=== PATIENT | female | born 1980 | race Two or more races ===

== ENCOUNTER → 2024-07-23 | Outpatient (CLI) | payer BC, MEDICAID, SELFPAY ==
[2024-07-23 12:16] LABS: Basophils % (Auto) 1 % (0-2.5); Eosinophils # (Auto) 0.1 Thou/mm3 (0.0-0.5); Eosinophils % (Auto) 1 % (0-10); Hematocrit 37.8 % (36.0-46.0); Hemoglobin 13.4 g/dL (12.0-16.0); Immature Granulocytes % (Auto) 0 % (0-0); Immature Granulocytes Auto 0.01 Thou/mm3 (0.00-0.00); Lymphocytes # (Auto) 1.7 Thou/mm3 (1.0-4.8); Lymphocytes % (Auto) 28 % (10-50); Mean Corpuscular HGB Conc 35.4 g/dl (31.0-37.0); Mean Corpuscular Hemoglobin 29.9 pg (25.0-35.0); Mean Corpuscular Volume 84 fL (80-100); Monocytes # (Auto) 0.4 Thou/mm3 (0.0-0.8); Monocytes % (Auto) 7 % (0-12); Neutrophils # (Auto) 3.8 Thou/mm3 (1.8-7.7); Neutrophils % (Auto) 63 % (37-80); Nucleated Red Blood Cell % 0 /100 WBC (0); Platelet Count 254 Thou/mm3 (140-440); RDW Standard Deviation 36.4 fL (36.4-46.3); Red Blood Count 4.48 Miln/mm3 (4.00-5.20)
[2024-07-23 12:34] LABS: B-Type Natriuretic Peptide 35 pg/mL (0-100)
[2024-07-23 12:36] LABS: Alanine Aminotransferase 20 U/L (10-49); Albumin, Serum 4.7 gm/dL (3.5-5.0); Alkaline Phosphatase 75 U/L (46-116); Anion Gap 8 (7-16); Aspartate Amino Transferase 21 U/L (0-34); BUN/Creatinine Ratio 20 Ratio (12-20); Bilirubin,Direct 0.3 mg/dL (0.0-0.3); Bilirubin,Total 0.9 mg/dL (0.3-1.2); Blood Urea Nitrogen 16 mg/dL (9-23); Calcium 9.8 mg/dL (8.3-10.6); Carbon Dioxide 24.3 mMol/L (20.0-31.0); Cardiac Risk Estimate 4.4 RATIO (3.7-5.6); Chloride 105 mMol/L (98-107); Cholesterol 189 mg/dL (132-200); Creatinine (Component) 0.8 mg/dL (0.6-1.3); Glucose 98 mg/dL (74-106); HDL Cholesterol 43 mg/dL (40-60); LDL Cholesterol,Calculated 115 mg/dL (0-130); Osmolality,Calculated 275 (275-295); Phosphorous 3.8 mg/dL (2.4-5.1); Sodium 137 mMol/L (136-145); Total Protein 7.4 gm/dL (5.7-8.2); Triglycerides 154 mg/dL (30-150); eGFR > 60 See Note
[2024-07-30 06:27] LABS: Direct LDL* 124 mg/dL (<100)
== END | disposition home or self-care (01) ==
PROVIDERS: PCP Physician Assistant; Referring Provider Internal Medicine Cardiovascular Disease; Visit Provider Internal Medicine Cardiovascular Disease
DX: E78.5 Hyperlipidemia, unspecified (principal); I11.0 Hypertensive heart disease with heart failure; I50.9 Heart failure, unspecified
CPT/HCPCS: 36415; 80048; 80061; 80076; 83721; 83880; 84100; 85025

== ENCOUNTER → 2024-08-04 | Outpatient (CLI) | payer BC, MEDICAID, SELFPAY ==
--- NOTE | 2024-08-04 08:00 | XR_ITS ---
Examination: Breast ultrasound, unilateral, right complete Date and time of exam: August 04, 2024 0823 hours INDICATIONS: Right breast pain beginning 3 months ago Technique: Real-time mahoney scale ultrasonographic imaging performed right breast including all 4 quadrants as well as nipple retroareolar and axillary region. Findings: No cystic or solid mass IMPRESSION: BI-RADS Category 1: Negative study
--- NOTE | 2024-08-04 08:45 | XR_ITS ---
Examination: Diagnostic digital mammography, unilateral, right Computer aided detection 3-D breast Tomosynthesis, unilateral Date and time of exam: August 04, 2024 0802 hours INDICATIONS: Palpable lump right breast note is beginning 3 months ago, family history, mother, breast cancer Technique: Nonmagnified MLO, CC views of the right breast have been obtained, reconstructed from 3-D Tomosynthesis images. R2 computer aided detection program utilized for evaluation of suspicious masses and/or abnormal calcifications. 3-D Tomosynthesis images obtained. Findings: The breast is heterogeneously dense, which may obscure small masses Focal architectural distortion on the spot compression views upper outer right breast at the palpable marker site Impression: BI-RADS category 4: Suspicious for malignancy Suspicious mass with architectural distortion upper outer right breast, biopsy is needed to exclude breast carcinoma, this mass is amenable to stereotactic breast biopsy for diagnosis Left breast mammography follow-up strongly recommended
== END | disposition home or self-care (01) ==
LOC: CDIM 07:45
PROVIDERS: PCP Physician Assistant; Referring Provider Physician Assistant; Visit Provider Physician Assistant
DX: R92.341 Mammographic extreme density, right breast (principal); N63.11 Unspecified lump in the right breast, upper outer quadrant; Z80.3 Family history of malignant neoplasm of breast
CPT/HCPCS: 76641; 77061; 77065; G0279

== ENCOUNTER → 2024-08-23 | Outpatient (CLI) | payer OTHER, SELFPAY | END | disposition home or self-care (01) | LOC: SMRI 12:05 | PROVIDERS: PCP Family Medicine; Referring Provider Family Medicine; Visit Provider Family Medicine | DX: S46.012A Strain of muscle(s) and tendon(s) of the rotator cuff of left shoulder, initial encounter (principal) ==

== ENCOUNTER → 2024-10-13 | Outpatient (BNVA) | payer BC, MEDICAID, SELFPAY | END | disposition home or self-care (01) | PROVIDERS: PCP Physician Assistant; Referring Provider Physician Assistant; Visit Provider Urology | DX: N26.1 Atrophy of kidney (terminal) (principal); N39.0 Urinary tract infection, site not specified; D41.4 Neoplasm of uncertain behavior of bladder | CPT/HCPCS: 81003; 99212; G0463 ==

== ENCOUNTER → 2024-10-30 | Outpatient (CLI) | payer BC, MEDICAID, SELFPAY ==
[2024-10-29 13:36] LABS: Basophils % (Auto) 0 % (0-2.5); Eosinophils # (Auto) 0.1 Thou/mm3 (0.0-0.5); Eosinophils % (Auto) 1 % (0-10); Hematocrit 39.4 % (36.0-46.0); Hemoglobin 13.9 g/dL (12.0-16.0); Immature Granulocytes % (Auto) 0 % (0-0); Immature Granulocytes Auto 0.03 Thou/mm3 (0.00-0.00); Lymphocytes # (Auto) 1.9 Thou/mm3 (1.0-4.8); Lymphocytes % (Auto) 22 % (10-50); Mean Corpuscular HGB Conc 35.3 g/dl (31.0-37.0); Mean Corpuscular Hemoglobin 29.9 pg (25.0-35.0); Mean Corpuscular Volume 85 fL (80-100); Monocytes # (Auto) 0.5 Thou/mm3 (0.0-0.8); Monocytes % (Auto) 5 % (0-12); Neutrophils # (Auto) 6.4 Thou/mm3 (1.8-7.7); Neutrophils % (Auto) 72 % (37-80); Nucleated Red Blood Cell % 0 /100 WBC (0); Platelet Count 271 Thou/mm3 (140-440); RDW Standard Deviation 37.1 fL (36.4-46.3); Red Blood Count 4.65 Miln/mm3 (4.00-5.20)
[2024-10-29 13:54] LABS: Partial Thromboplastin Time 26.2 Seconds (22.0-36.0)
[2024-10-29 14:31] LABS: HCG,Qualitative Serum Negative
--- NOTE | 2024-10-30 08:30 | XR_ITS ---
Examination: Planned Stereotactic guided vacuum assisted right breast biopsy with clip placement Specimen radiograph Date and time of exam:10/30/2024, 10:05 AM COMPARISON: 08/04/2024 INDICATION: Intermittent palpable abnormality with architectural distortion seen on recent diagnostic mammogram. Timeout performed, documenting correct patient, order, referring physician, patient's site and reason for procedure, allergies to medications Informed consent provided. Technique: The previously described area of architectural distortion could not be localized with the stereotactic apparatus on today's exam. Biopsy not performed. Impression: Mass seen on prior mammogram not definitively identified on today's exam. Biopsy not performed. Overall findings are probably benign. Recommend three-month bilateral diagnostic mammogram follow-up. If symptoms worsen recommend immediate reevaluation. BI-RADS Category 3.
== END | disposition home or self-care (01) ==
LOC: CDIM 10-31 07:52
PROVIDERS: Radiology Diagnostic Radiology; PCP Physician Assistant; Referring Provider Physician Assistant; Visit Provider Physician Assistant
DX: R92.8 Other abnormal and inconclusive findings on diagnostic imaging of breast (principal); Z53.8 Procedure and treatment not carried out for other reasons; Z01.812 Encounter for preprocedural laboratory examination
CPT/HCPCS: 19081; 36415; 84703; 85025; 85610; 85730

== ENCOUNTER 2025-01-01 15:59 | Emergency (ER) | payer OTHER, SELFPAY ==
[2025-01-01 16:00] VITALS: BMI 29.2
[2025-01-01 16:22] VITALS: BP 111/74; PULSE 76; RESP 18; TEMP 36.9; O2SAT 98
--- NOTE | 2025-01-01 16:26 | XR_ITS ---
Examination: PA lateral chest 2 views TECHNIQUE: Upright PA lateral chest 2 views Emptying time: January 01, 2025 1645 hours Comparison February 21, 2024 INDICATIONS: Difficulty breathing beginning this morning. FINDINGS: Normal heart size. CABG. Cardiac leads stable position No unremarkable pneumonia or pulmonary edema IMPRESSION: No interval pneumonia or pulmonary edema
--- NOTE | 2025-01-01 16:26 | EKG_ITS ---
[facility] Test Date: 2025-01-01 Pat Name: JOHANNA ESPINOZA Department: Room: - Gender: Female Nursing Specialist: : 1980 Requested By: Trell Rodriguez Order Number: [id number] Reading MD: Trell Rodriguez Measurements Intervals [employer] Rate: 77 P: 228 GA: 174 QRS: 65 QRSD: 85 T: 63 QT: 392 QTc: 444 Interpretive Statements ELECTRONIC ATRIAL PACEMAKER ABNORMAL RHYTHM ECG Compared to ECG 02/21/2024 16:35:16 No significant changes /store/S0/[id number].pdf
--- NOTE | 2025-01-01 16:27 | EDRME_ITS ---
Rapid Medical Screening Exam RME Arrival date/time: 01/01/25 15:59 44-year-old female with a history of a heart attack presents to the emergency room with a chief complaint of palpitations, and 10 out of 10 chest tightness x 6 hours I have greeted and performed a focused initial assessment of this patient. A com prehensive ED assessment and evaluation of the patient, analysis of all test results, and completion of the medical decision making process will be conducted by additional ED providers. Chief Complaint: Chest Pain Time Seen by Provider: 01/01/25 16:07 Vital signs: Vital Signs Temperature 98.4 F 01/01/25 16:22 Pulse Rate 76 01/01/25 16:22 Respiratory Rate 18 01/01/25 16:22 Blood Pressure 111/74 01/01/25 16:22 Pulse Oximetry (%) 98 01/01/25 16:22 Oxygen Delivery Method Room Air 01/01/25 16:22 Vital signs reviewed by provider: Yes
[2025-01-01 17:12] LABS: Basophils % (Auto) 0 % (0-2.5); Eosinophils # (Auto) 0.1 Thou/mm3 (0.0-0.5); Eosinophils % (Auto) 2 % (0-10); Hematocrit 40.3 % (36.0-46.0); Hemoglobin 14.2 g/dL (12.0-16.0); Immature Granulocytes % (Auto) 0 % (0-0); Immature Granulocytes Auto 0.03 Thou/mm3 (0.00-0.00); Lymphocytes # (Auto) 2.1 Thou/mm3 (1.0-4.8); Lymphocytes % (Auto) 29 % (10-50); Mean Corpuscular HGB Conc 35.2 g/dl (31.0-37.0); Mean Corpuscular Volume 85 fL (80-100); Monocytes # (Auto) 0.4 Thou/mm3 (0.0-0.8); Monocytes % (Auto) 6 % (0-12); Neutrophils # (Auto) 4.6 Thou/mm3 (1.8-7.7); Neutrophils % (Auto) 63 % (37-80); Nucleated Red Blood Cell % 0 /100 WBC (0); Platelet Count 287 Thou/mm3 (140-440); RDW Standard Deviation 37.4 fL (36.4-46.3); Red Blood Count 4.73 Miln/mm3 (4.00-5.20); White Blood Count 7.3 Thou/mm3 (3.6-11.0)
[2025-01-01 17:25] LABS: B-Type Natriuretic Peptide < 20 pg/mL (0-100)
[2025-01-01 17:30] LABS: Alanine Aminotransferase 11 U/L (10-49); Albumin, Serum 4.8 gm/dL (3.5-5.0); Albumin/Globulin Ratio 1.6 (1.2-2.2); Alkaline Phosphatase 77 U/L (46-116); Anion Gap 11 (7-16); Aspartate Amino Transferase 18 U/L (0-34); BUN/Creatinine Ratio 16 Ratio (12-20); Bilirubin,Total 0.8 mg/dL (0.3-1.2); Blood Urea Nitrogen 14 mg/dL (9-23); Calcium 9.5 mg/dL (8.3-10.6); Calcium (Corrected) 9.5 mg/dL (8.5-10.1); Carbon Dioxide 23.3 mMol/L (20.0-31.0); Chloride 104 mMol/L (98-107); Creatinine (Component) 0.9 mg/dL (0.6-1.3); Estimated Creatinine Clearance 75.2 mL/min (>60); Glucose 101 mg/dL (74-106); Osmolality,Calculated 276 (275-295); Sodium 138 mMol/L (136-145); Total Protein 7.8 gm/dL (5.7-8.2); Troponin I < 0.002 ng/mL (0.0-0.045); eGFR > 60 See Note
[2025-01-01 17:55] LABS: Collection Type, Urine Clean Catch
[2025-01-01 18:05] LABS: Bacteria,Urine Rare; Bilirubin,Urine Negative (Negative); Blood,Urine 3+ (Negative); Clarity,Urine Clear (Clear/Hazy); Color,Urine Colorless (Lt Yel-Yel); Glucose, Urine Negative (Negative); Ketones,Urine Negative (Negative); Leukocyte Esterase,Urine Positive (Negative); Nitrite,Urine Negative (Negative); Protein,Urine Negative (Neg - Trace); RBC,Urine 16 /hpf (0-3); Specific Gravity,Urine 1.006 (1.001-1.035); Squamous Epithelial Cell,Urine 6 /hpf (0-5); Urobilinogen,Urine Negative mg/dL (0.0-1.0); WBC,Urine 50 /hpf (0-5)
[2025-01-01 18:07] LABS: Amphetamine/Methamp Scrn,U Negative (Negative); Barbiturate Screen,Urine Negative (Negative); Benzodiazepines Screen,Urine Negative (Negative); Benzoylecgonine Screen, Ur Negative (Negative); Fentanyl Screen,Urine Negative (Negative); Opiate Screen,Urine Negative (Negative); THC Screen,Urine Negative (Negative)
[2025-01-01 18:27] VITALS: BP 131/85; PULSE 76; RESP 18; O2SAT 99
--- NOTE | 2025-01-01 19:43 | EDNOTE_ITS ---
<Statement entered by Guera Neely MD - 01/02/25 05:24> As co-signing physician, I was present and available for consult prn. I concur with the plan and care as documented by the midlevel provider. ED Arrhythmia Palp. RME/HPI General Chief Complaint: Chest Pain Stated Complaint: I HAVE A RAPID HEART RATE Time Seen by Provider: 01/01/25 16:07 Arrival date/time: 01/01/25 15:59 RME / HPI RME / HPI narrative: 44-year-old female patient with a history of valve replacement 20 years ago, followed by a production control expert in [place], came in for evaluation regarding complaints of palpitation. Has been having palpitation on and off for several days, today get worst associated with chest tightness it has been ongoing for the last 6 hours. Patient was seen by her production control expert last week and was told that she needs to see her thoracic surgeon/cardiac surgeon because one of the valve is leaking currently patient is also complaining of anxiety-like symptoms. Denies any cough denies any other complaints. Related Data Home Medications ?Medication ?Instructions ?Recorded ?Confirmed aspirin 81 mg chewable tablet 81 mg PO QDAY 07/07/18 0 10/13/24 (Aspirin Childrens) nitrofurantoin macrocrystal 100 mg 100 mg PO QHS 02/2410/13/24 capsule Previous Rx's ?Medication ?Instructions ?Recorded cephalexin 500 mg capsule 500 mg PO Q8H 7 days #21 cap s 01/01/25 Allergies Allergy/AdvReac Type Severity Reaction Status Date / Time No Known Allergies Allergy Verified 10/13/24 10:15 Review of Systems Review of Systems Narrative Review of Systems: Review of system reviewed and within normal limits except mentioned in HPI ED Exam Narrative Physical exam: VITAL SIGNS: Reviewed. GENERAL APPEARANCE: Alert and interactive, follows commands, no acute distress, HEAD AND FACE: Non-traumatic. ENT: PERRL, pink conjunctivitis, eyelid no trauma, Mucous membrane moist. NECK: Supple, nontender, no nuchal rigidity. CHEST: No tenderness, no crepitus, no paradoxical movement, no retractions. LUNGS: Clear, well ventilated, symmetric, no rales, no wheezing, no ronchi, no stridor, good breath sounds bilaterally. HEART: Midsternal scar noted, regular rate, regular rhythm, no murmur, no gallops. ABDOMEN: Soft, positive bowel sounds, nondistended, no guarding, nontender, no rebound, no masses, RECTAL: Deferred. GENITAL: Deferred. NEUROLOGICAL: Gross motor function intact sensory function intact, Appropriate for age. MUSCULOSKELETAL: low back nontender, full range of motion. EXTREMITIES: Nontender, full range of motion. SKIN: Color pink, dry, no rash, no lacerations, no abrasions, no contusions. LYMPHATICS: Deferred. Course Quality Measures none Orders Category Date Time Status EKG (ED ONLY) *Do not use* NOW Care 01/01/25 16:26 Completed EKG (ED Only) Stat Exams 01/01/25 16:26 Draft XR chest 2V Stat Exams 01/01/25 16:26 Completed B-Type Natriuretic Peptide Stat Lab 01/01/25 17:01 Completed CBC Stat Lab 01/01/25 17:01 Completed Comprehensive Metabolic Panel Stat Lab 01/01/25 17:01 Completed Drug Screen,Urine Stat Lab 01/01/25 17:45 Completed Troponin I Stat Lab 01/01/25 17:01 Completed Urinalysis Stat Lab 01/01/25 17:45 Completed LORazepam [Ativan] Med 01/01/25 19:41 Discontinued 1 mg PO X1 ONE cephALEXin [Keflex] Med 01/01/25 19:41 Discontinued 500 mg PO X1 ONE Vital Signs Vital signs: Vital Signs Temperature 98.4 F 01/01/25 16:22 Pulse Rate 76 01/01/25 16:22 Respiratory Rate 18 01/01/25 16:22 Blood Pressure 111/74 01/01/25 16:22 Pulse Oximetry (%) 98 01/01/25 16:22 Oxygen Delivery Method Room Air 01/01/25 16:22 Arrhythmia/Palpitations MDM Narrative MDM Narrative:: 44-year-old female patient with a history of valve replacement 20 years ago, followed by a production control expert in [place], came in for evaluation regarding complaints of palpitation. Has been having palpitation on and off for several days, today get worst associated with chest tightness it has been ongoing for the last 6 hours. Patient was seen by her production control expert last week and was told that she needs to see her thoracic surgeon/cardiac surgeon because one of the valve is leaking currently patient is also complaining of anxiety-like symptoms. Denies any cough denies any other complaints. Patient's cardiac workup all came back unremarkable. Troponin is normal CBC is normal except for urinalysis positive for UTI. I personally reviewed and interpreted the x-ray of this patient. There is no acute abnormalities found, no infiltrates no pneumothorax no hemothorax normal chest x-ray. Review of other structures was without significant abnormal findings also. I additionally reviewed the radiologist report and agree with the interpretation. EKG showed paced rhythm, ventricular rate of 77 bpm, no ST segment elevation depression noted. Patient was given Ativan and Keflex in the emergency room. Patient was advised to see her cardiac surgeon in [place] the soonest time possible. Patient agrees with the plan. Patient data External records reviewed:: None Clinical information provided by:: patient Social determinants that could affect healthcare access:: none Patient has the following chronic illnesses:: Status post heart valve replacement, history of anxiety How is presenting disease/condition affected by chronic disease/condition?: exacerbated by Evaluation data The following diagnostics were reviewed and interpreted by me:: lab results, radiology exam(s) and EKG tracing(s) Lab and/or radiology exams considered but not ordered:: None Interpretation Summary: See results in MDM Medications / Prescriptions Medications or Prescriptions considered but not ordered:: None Medication administrations:: Medication Administration History Discontinued Medications Cephalexin HCl (Cephalexin 250 Mg Capsule) 500 mg PO X1 ONE Stop: 01/01/25 19:42 Lorazepam (Lorazepam 0.5 Mg Tablet) 1 mg PO X1 ONE Stop: 01/01/25 19:42 Consultations Consultation(s) initiated? (list below): No Consultation #1 (Physician, Specialty, Details): None Diagnosis Differential diagnosis arrhythmia/palpitations: palpitations Most likely diagnosis given after review of the tests above:: Palpitation, anxiety Admission Indicated Admission indicated?: not indicated Admission Request Was there a request for admission?: No Disposition Plan Disposition Plan: Discharge Discharge Attestation Discharge Attestation: The patient was given an opportunity to ask questions and understood the discharge instructions. Discharge instructions specifically effects, indications for sooner follow up or return to the emergency department, and the expected course of current diagnosis. Patient condition: Stable Discharge Plan Plan Patient Disposition: HOME (Self Care) Discharge Disposition comment: Stable Prescriptions/Referrals Prescriptions/Med Rec: New cephalexin 500 mg capsule 500 mg PO Q8H 7 Days Qty: 21 0RF No Action nitrofurantoin macrocrystal 100 mg capsule 100 mg PO QHS Rx Instructions: must administer with a meal/food aspirin [Aspirin Childrens] 81 mg Tablet,Chewable 81 mg PO QDAY Referrals: Shanti Ruelas PA-C [Primary Care Provider] - In 1 week Problem List Clinical Impression: UTI (urinary tract infection), Palpitation Patient/Caregiver Discharge Instructions Discharge Activity: activity as tolerated Education Materials: ED Palpitations Additional Instructions: Thank you for the opportunity for serving you today. You are stable for discharged . You are advised to: Follow-up with your PCP in 1 to 2 days Follow-up with your production control expert as instructed Return to ED for worsening of symptoms Increase oral fluids Take medication as prescribed Print Language: Eritrean Stand Alone Forms: Alecia Award Info., Patient Portal Info Letter PA/EMANI Supervising Physician MARV/EMANI Supervising Physician: MD Florinda
[2025-01-01] MEDS: cephALEXin 250 MG CAPSULE 500 MG PO (19:54)
[2025-01-01] MEDS: LORazepam 0.5 MG TABLET 1 MG PO (19:54)
== END 2025-01-01 19:56 | disposition home or self-care (01) ==
PROVIDERS: Nurse Practitioner Family; Emergency Provider Emergency Medicine; PCP Physician Assistant
DX: R00.2 Palpitations (principal); N39.0 Urinary tract infection, site not specified; R94.31 Abnormal electrocardiogram [ECG] [EKG]; Z95.2 Presence of prosthetic heart valve
CPT/HCPCS: 36415; 71046; 80053; 80307; 81001; 83880; 84484; 85025; 93005; 99283; A9270

== ENCOUNTER → 2025-04-13 | Outpatient (BNVA) | payer OTHER, MEDICAID, SELFPAY | END | disposition home or self-care (01) | PROVIDERS: PCP Physician Assistant; Referring Provider Physician Assistant; Visit Provider Urology | DX: N39.0 Urinary tract infection, site not specified (principal); N27.0 Small kidney, unilateral; Z95.0 Presence of cardiac pacemaker | CPT/HCPCS: 81003; 99212; G0463 ==